=== PATIENT | female | born 1995 | race Two or more races ===

== ENCOUNTER 2020-06-20 08:46 | Emergency (ER) | payer SELFPAY ==
[~2020-06-20] VITALS: Ht 152.4 cm; Wt 59.0 kg
[2020-06-20 09:18] LABS: BILIRUBIN,URINE NEGATIVE (NEGATIVE); COLOR,URINE YELLOW (YELLOW); LEUKOCYTE ESTERASE ,URINE LARGE (NEGATIVE); NITRITE, URINE POSITIVE (NEGATIVE); PROTEIN,URINE NEGATIVE (NEGATIVE); UGLUCOSE NEGATIVE (NEGATIVE); UROBILINOGEN,URINE 0.2 EU/dL (0.2)
[2020-06-20 09:31] LABS: BACTERIA,URINE Many /HPF (None Seen); SQUAMOUS EPITHELIAL CELL,UR Few /HPF (None Seen); WBC,URINE TOO NUMEROUS TO COUN /HPF (0-3)
--- NOTE | 2020-06-20 09:51 | NUR ---
External Vaginal Exam done by w/RN (Lorraine Moeller as staff weapons officer"
[2020-06-20] MEDS ORDERED: CEFTRIAXONE 1 G VIAL IM ONE (10:30)
[2020-06-20] MEDS ORDERED: CEFTRIAXONE 1 G VIAL ONE (10:44)
[2020-06-20] MEDS ORDERED: CEPH500C2 PO (10:55)
[2020-06-20 11:03] VITALS: BP 118/77
--- NOTE | 2020-06-20 11:04 | NUR ---
Patient given written and verbal discharge instructions. Patient verbalizes understanding of instructions. Patient is ambulatory with steady gait. Refuses offer of halfway placement. Patient given list of available shelters in surrounding area.
--- NOTE | 2020-06-20 11:04 | NUR ---
Patient discharged to home in stable condition. Written and verbal after care instructions given. Patient verbalizes understanding of instruction.
== END 2020-06-20 11:03 | disposition home or self-care (01) ==
LOC: ER 09:00
DX: N39.0 Urinary tract infection, site not specified (principal); B07.8 Other viral warts; Z59.0 Homelessness; Z79.899 Other long term (current) drug therapy
CPT/HCPCS: 81001; 84703; 87086; 96372; 99283; J0696; 87186-TC

== ENCOUNTER 2022-07-29 00:37 | Emergency (ER) | payer OTHER ==
[~2022-07-29 00:37] MED LIST: CEPH500C2 PO
--- NOTE | 2022-07-29 01:41 | NUR ---
CALLED FOR TRIAGE & MD EVAL. NO RESPONSE.
--- NOTE | 2022-07-29 02:09 | NUR ---
CALLED FOR TRIAGE & MD EVAL. NO RESPONSE.
--- NOTE | 2022-07-29 02:51 | NUR ---
CALLED FOR TRIAGE. NO ANSWER
== END 2022-07-29 02:52 | disposition left against medical advice (07) ==
LOC: ER 00:38
DX: Z53.21 Procedure and treatment not carried out due to patient leaving prior to being seen by health care provider (principal)